=== PATIENT | male | born 1970 | race Caucasian/White ===

== ENCOUNTER 2019-07-13 17:21 | Inpatient (IN) | payer BC ==
[2019-07-13] MEDS ORDERED: ADENOSINE 3 MG/ML 2 ML VIAL IVP STA (17:38)
[2019-07-13] MEDS ORDERED: METOPROLOL TARTRATE 5 MG/5 ML VIAL IVP STA (17:41)
[2019-07-13] MEDS ORDERED: SODIUM CHLORIDE 0.9% 1,000 ML IV STA (17:41)
--- NOTE | 2019-07-13 17:43 | ED ---
Chest Pain HPI - General Chief Complaint: Chest Pain Stated Complaint: Chest pain Time Seen by Provider: 07/13/19 17:29 Source: patient, RN notes reviewed, old records reviewed Mode of arrival: ambulatory - History of Present Illness Initial Comments: This is a 49-year-old male presents today for shortness of breath patient drove himself to Hospital see chart at home was in the 200s. Patient states his heart feels acute tracing feels a headed and dizzy with chest pain currently. Patient admits to current chest pain but no significant shortness of breath increasing does not feel using a pass out. She admits to occasional drinking mild nausea no vomiting no travel show sick contacts no fevers MD Complaint: chest pain, other (Rapid heart rate) -: hour(s) Onset: during rest, awoke with symptoms Pain Location: left chest Pain Radiation: none Severity: moderate Severity scale (1-10): 7 Quality: tightness, heaviness Consistency: constant Improves With: nothing Worsens With: nothing Anginal Symptoms: nausea, dyspnea Other Symptoms: palpitations Treatments Prior to Arrival: none - Related Data Home Medications Medication Instructions Recorded Confirmed Labetalol [Trandate] 100 mg PO BID 02/02/15 07/13/19 Acetaminophen [Tylenol Extra 500 mg PO Q6H PRN 07/13/19 07/13/19 Strength] Atorvastatin [Lipitor] 40 mg PO HS 07/13/19 07/13/19 HYDROcodone/APAP 5-325MG [[place] 1 tab PO Q4HR PRN 07/13/19 07/13/19 5-325] Losartan Potassium 100 mg PO DAILY 07/13/19 07/13/19 Multivitamins, Thera [Multivitamin 1 tab PO DAILY 07/13/19 07/13/19 (formulary)] [place]-3 Acid Ethyl Esters [Lovaza] 2 gm PO BID 07/13/19 07/13/19 amLODIPine [Norvasc] 10 mg PO DAILY 07/13/19 07/13/19 Allergies Allergy/AdvReac Type Severity Reaction Status Date / Time No Known Allergies Allergy Verified 07/13/19 18:09 Review of Systems ROS Statement: Those systems with pertinent positive or pertinent negative responses have been documented in the HPI. ROS Other: All systems not noted in ROS Statement are negative. EKG Findings - EKG Comments: EKG Findings:: EKG shows SVT of 183, QRS 86, QTC 439. Repeat after adenosine. EKG shows sinus rhythm of 90, NM 160, QRS 96, QTC 423 Past Medical History Past Medical History: Hyperlipidemia, Hypertension History of Any Multi-Drug Resistant Organisms: None Reported Past Surgical History: Heart Catheterization Past Psychological History: Anxiety Smoking Status: Former smoker Past Alcohol Use History: Occasional Past Drug Use History: None Reported General Exam General appearance: alert, in no apparent distress, anxious, in distress, obese Head exam: Present: atraumatic, normocephalic, normal inspection Eye exam: Present: normal appearance, PERRL, EOMI. Absent: scleral icterus, conjunctival injection, periorbital swelling ENT exam: Present: normal exam, mucous membranes moist Neck exam: Present: normal inspection. Absent: tenderness, meningismus, lymphadenopathy Respiratory exam: Present: normal lung sounds bilaterally. Absent: respiratory distress, wheezes, rales, rhonchi, stridor Cardiovascular Exam: Present: normal rhythm, tachycardia, normal heart sounds. Absent: systolic murmur, diastolic murmur, rubs, gallop, clicks GI/Abdominal exam: Present: soft, normal bowel sounds. Absent: distended, tenderness, guarding, rebound, rigid Extremities exam: Present: normal inspection, full ROM, normal capillary refill. Absent: tenderness, pedal edema, joint swelling, calf tenderness Back exam: Present: normal inspection Neurological exam: Present: alert, oriented X3, CN II-XII intact Psychiatric exam: Present: normal affect, normal mood Skin exam: Present: warm, dry, intact, normal color. Absent: rash Course Vital Signs 07/13/19 07/13/19 07/13/19 17:23 17:42 18:07 Temperature 98.3 F Pulse Rate 180 H 89 82 Respiratory 20 18 18 Rate Blood Pressure 143/93 181/91 158/81 O2 Sat by Pulse 96 98 98 Oximetry 07/13/19 19:49 Temperature Pulse Rate 88 Respiratory 18 Rate Blood Pressure 160/84 O2 Sat by Pulse 98 Oximetry - Reevaluation(s) Reevaluation #1: 07/13/19 20:28 Medical records reviewed Reevaluation #2: 07/13/19 20:28 Agent given adenosine 12 mg after failure of vagal maneuvers. Patient did have conversion to normal sinus rhythm Chest Pain MDM - MDM 49 male who presented in SVT with chest pain today. SVT was converted with adenosine did feel regular movement maneuvers. Patient has normal heart rate currently still with chest pain and elevated troponin will admit for cardiology to evaluate Critical Care Time Critical Care Time: Yes Total Critical Care Time: 31 Disposition Clinical Impression: Atypical chest pain, Chest pain, SVT (supraventricular tachycardia), Elevated troponin Disposition: ADMITTED IP TO THIS HOSP Condition: Fair Is patient prescribed a controlled substance at d/c from ED?: No Referrals: Figueroa Briscoe MD [Primary Care Provider] - 1-2 days
[2019-07-13 18:09] LABS: Basophils % (A) 0 %; Eosinophils # (A) 0.1 k/uL (0-0.7); Eosinophils % (A) 1 %; HCT 48.9 % (39.0-53.0); HGB 16.6 gm/dL (13.0-17.5); Lymphocytes # (A) 1.5 k/uL (1.0-4.8); Lymphocytes % (A) 17 %; MCH 30.3 pg (25.0-35.0); MCHC 33.9 g/dL (31.0-37.0); MCV 89.4 fL (80.0-100.0); Mean Platelet Volume 7.8; Monocytes # (A) 0.5 k/uL (0-1.0); Monocytes % (A) 5 %; Neutrophils # (A) 6.8 k/uL (1.3-7.7); Neutrophils % (A) 75 %; Platelet Count 290 k/uL (150-450); RBC 5.46 m/uL (4.30-5.90); RDW 13.2 % (11.5-15.5)
--- NOTE | 2019-07-13 18:09 | XR ---
EXAMINATION TYPE: XR chest 2V DATE OF EXAM: 07/13/2019 COMPARISON: NONE HISTORY: Chest pain TECHNIQUE: 2 views FINDINGS: Heart and mediastinum are normal. Lungs are clear of infiltrate. There is no pleural effusi on. There are no hilar masses. Bony thorax is intact. IMPRESSION: No active cardiopulmonary disease. Normal heart.
[2019-07-13 18:13] LABS: ALT 65 U/L (4-49); AST 52 U/L (17-59); African American GFR (CKD) >90 (>60 ml/min/1.73 sqM); Albumin 4.8 g/dL (3.5-5.0); Alkaline Phosphatase 80 U/L (38-126); Anion Gap 11 mmol/L; Blood Urea Nitrogen 11 mg/dL (9-20); Calcium 9.8 mg/dL (8.4-10.2); Carbon Dioxide 22 mmol/L (22-30); Chloride 104 mmol/L (98-107); Creatine Kinase 606 U/L (55-170); Glucose 141 mg/dL (74-99); Magnesium 1.9 mg/dL (1.6-2.3); Non-African American GFR(CKD) >90 (>60 ml/min/1.73 sqM); Potassium 4.5 mmol/L (3.5-5.1); Sodium 137 mmol/L (137-145); Total Bilirubin 0.7 mg/dL (0.2-1.3); Total Protein 7.6 g/dL (6.3-8.2)
[2019-07-13 18:18] LABS: D-Dimer 0.51 mg/L FEU (<0.60); Partial Thromboplastin Time 23.8 sec (22.0-30.0)
[2019-07-13 18:31] LABS: Creatine Kinase MB 3.6 ng/mL (0.0-2.4)
[2019-07-13 18:57] LABS: Troponin I 0.049 ng/mL (0.000-0.034)
[2019-07-13] MEDS ORDERED: ASPIRIN 81 MG PO STA (20:26)
[2019-07-13] MEDS ORDERED: NITROGLYCERIN SL TABS 0.4 MG TAB SUBLINGUAL PRN (20:26)
[2019-07-13] MEDS ORDERED: LORazepam 2 MG/ML INJ IV PRN ×3 (20:36)
[2019-07-13] MEDS ORDERED: THIAMINE 100 MG/ML 2 ML VIAL IM STA (20:36)
[2019-07-13] MEDS: METOPROLOL TARTRATE 50 MG TAB PO SCH (22:58)
--- NOTE | 2019-07-14 00:26 | P.HPIM ---
History of Present Illness H&P Date: 07/13/19 The patient is a 49-year-old male with a PMH of hypertension and hyperlipidemia who presented to the ED with complaints of shortness of breath and chest discomfort. The patient reports that he was in his usual state of health until earlier today when he suddenly developed palpitations while at work. The palpitations were associated with mild chest discomfort (substernal, 3/10, non- radiating, pressure-like). He proceeded to go home and try to rest with no avail. The symptoms persisted, for which she then presented to the ED. Upon presentation to the emergency room, the patient was noted to have a pulse of 180, with EKG showing SVT at 183 bpm. The patient's BP was 143/93, temperature 98, and was saturating 96% on room air. The patient was given adenosine 12 mg IV push after which his SVT aborted. Further laboratory evaluation revealed a WBC count of 9.0, hemoglobin 16.6, CK 606, CK-MB 3.6, troponin 0.049, BNP 481, sodium 137, potassium 4.5, BUN 11, and a creatinine of 0.69. At time of the interview, the patient noted that his chest discomfort had resolved and he denied any additional complaints. He denied shortness of breath, nausea, vomiting, dizziness, palpitations, headaches, or abdominal pain. He is being admitted to the medicine service for further management of SVT. Review of Systems Pertinent positives and negatives as discussed in HPI, a complete review of systems was performed and all other systems are negative. Past Medical History Past Medical History: Hyperlipidemia, Hypertension History of Any Multi-Drug Resistant Organisms: None Reported Past Surgical History: Heart Catheterization Past Psychological History: Anxiety Smoking Status: Former smoker Past Alcohol Use History: Occasional Past Drug Use History: None Reported - Past Family History Father Family Medical History: Hypertension Medications and Allergies Home Medications Medication Instructions Recorded Confirmed Type Labetalol [Trandate] 100 mg PO BID 02/02/15 07/13/19 History Acetaminophen [Tylenol Extra 500 mg PO Q6H PRN 07/13/19 07/13/19 History Strength] Atorvastatin [Lipitor] 40 mg PO HS 07/13/19 07/13/19 History HYDROcodone/APAP 5-325MG [[place] 1 tab PO Q4HR PRN 07/13/19 07/13/19 History 5-325] Losartan Potassium 100 mg PO DAILY 07/13/19 07/13/19 History Multivitamins, Thera [Multivitamin 1 tab PO DAILY 07/13/19 07/13/19 History (formulary)] [place]-3 Acid Ethyl Esters [Lovaza] 2 gm PO BID 07/13/19 07/13/19 History amLODIPine [Norvasc] 10 mg PO DAILY 07/13/19 07/13/19 History Allergies Allergy/AdvReac Type Severity Reaction Status Date / Time No Known Allergies Allergy Verified 07/13/19 18:09 Physical Exam Vitals: Vital Signs Temp Pulse Resp BP Pulse Ox 07/13/19 23:14 97 F L 75 18 138/85 96 07/13/19 22:54 97 F L 75 18 138/85 96 07/13/19 19:49 88 18 160/84 98 07/13/19 18:07 82 18 158/81 98 07/13/19 17:42 89 18 181/91 98 07/13/19 17:23 98.3 F 180 H 20 143/93 96 Intake and Output 07/13/19 07/13/19 07/14/19 14:59 22:59 06:59 Other: Weight 120.202 kg General: non toxic, no distress, appears at stated age, morbidly obese Derm: no unusual rashes/lesions no unusual ecchymoses, warm, dry Head: atraumatic, normocephalic, symmetric Eyes: EOMI, no lid lag, anicteric sclera, pupils equal round reactive to light ENT: Nose and ears atraumatic, no thrush, no pharyngeal erythema Neck: No thyromegaly, no cervical lymphadenopathy, trachea midline, supple Mouth: no lip lesion, mucus membranes moist Cardiovascular: S1S2 reg, no murmur, positive posterior tibial pulse bilateral, no edema, capillary refill less than 2 seconds Lungs: CTA bilateral, no rhonchi, no rales , no accessory muscle use Abdominal: soft, nontender to palpation, no guarding, no appreciable organomegaly, normal bowel sounds Ext: no gross muscle atrophy, muscle strength 5 out of 5 in all 4 extremities grossly, no contractures, Neuro: CN II-XI grossly intact, light touch intact all 4 extremities, finger to nose within normal limits, Psych: Alert, oriented, appropriate affect Results CBC & Chem 7: 07/13/19 17:39 07/13/19 17:39 Labs: Abnormal Lab Results - Last 24 Hours (Table) 07/13/19 07/13/19 Range/Units 17:39 17:39 Glucose 141 H (74-99) mg/dL ALT 65 H (4-49) U/L Creatine Kinase 606 H (55-170) U/L CK-MB (CK-2) 3.6 H (0.0-2.4) ng/mL Troponin I 0.049 H* (0.000-0.034) ng/mL Assessment and Plan Plan: SVT, now aborted -Cardiology consulted -Start patient on Lopressor -Echocardiogram -Cardiac monitoring Chest discomfort with troponin elevation -Likely secondary to demand ischemia from SVT -Trend troponin -Cardiac monitoring Chronic conditions: Hypertension, hyperlipidemia - Continue with home meds DVT prophylaxis -Heparin subq The patient is admitted with an anticipated less than 2 midnight stay for evaluation of chest discomfort CODE STATUS: Full Code Discussed with: Patient Anticipated discharge date: 1-[address]: Home A total of 40 minutes was spent on the care of this complex patient more than 50% of the time was spent in counseling and care coordination.
[2019-07-14] MEDS ORDERED: HEPARIN SODIUM,PORCINE 5,000 UNIT/ML 1 ML VIAL IV PRN (01:12)
[2019-07-14] MEDS ORDERED: HEPARIN SODIUM,PORCINE 5,000 UNIT/ML 1 ML VIAL IV ONE (01:12)
[2019-07-14] MEDS ORDERED: HEPARIN SOD,PORK IN 0.45% NACL 25,000 UNIT in 0.45% NACL 1 250ML.BAG IV SCH (01:15)
[2019-07-14 06:19] LABS: Cholesterol 158 mg/dL (<200); HDL Cholesterol 52 mg/dL (40-60); LDL Cholesterol,Calculated 76 mg/dL (0-99); Triglycerides 151 mg/dL (<150)
[2019-07-14] MEDS ORDERED: THIAMINE 100 MG TAB PO SCH (07:30)
[2019-07-14] MEDS: METOPROLOL TARTRATE 50 MG TAB PO SCH (08:56)
--- NOTE | 2019-07-14 08:56 | P.CRDCN ---
History of Present Illness Consult date: 07/14/19 Requesting physician: Nicolás Martin Reason for Consult (text): SVT Chief complaint: Palpitations, dizziness History of present illness: This is a pleasant 49-year-old gentleman with history of hypertension, hyperlipidemia, obesity, sleep apnea for which he uses CPAP, EtOH use, patient s tates he drinks up to 14 alcoholic beverages on the weekends, nondiabetic, unsure of family history because he was adopted. Patient states he noticed his heart racing fast while he was at work, he states that he went home and continued to feel like it was going extremely fast. He did have some dizziness and some mild nausea and shortness of breath. Came to the emergency room for further evaluation and treatment. His EKG on presentation here showed a supraventricular tachycardia with a heart rate of 180, they attempted vagal maneuvers and subsequently gave the patient 12 mg of adenosine and the patient converted to normal sinus rhythm. He states that once he converted to normal rhythm his symptoms were completely resolved and he felt back to his normal self. Chest x-ray did not reveal any active cardiopulmonary disease. EKG from this morning shows a normal sinus rhythm with no acute changes. Blood pressure 142/70 with a heart rate in the 70s, 98% on room air. White blood cell count 9.0, hemoglobin 16, platelet count 290. D-dimer 0.5. Sodium 137, potassium 4.5, BUN 11, creatinine 0.6. Troponin 0.04, 0.26, 0.23. BNP 481. Past Medical History Past Medical History: Hyperlipidemia, Hypertension History of Any Multi-Drug Resistant Organisms: None Reported Past Surgical History: Heart Catheterization Past Psychological History: Anxiety Smoking Status: Former smoker Past Alcohol Use History: Occasional Past Drug Use History: None Reported - Past Family History Father Family Medical History: Hypertension Mother Family Medical History: Unable to Obtain Medications and Allergies Home Medications Medication Instructions Recorded Confirmed Type Labetalol [Trandate] 100 mg PO BID 02/02/15 07/13/19 History Acetaminophen [Tylenol Extra 500 mg PO Q6H PRN 07/13/19 07/13/19 History Strength] Atorvastatin [Lipitor] 40 mg PO HS 07/13/19 07/13/19 History HYDROcodone/APAP 5-325MG [[place] 1 tab PO Q4HR PRN 07/13/19 07/13/19 History 5-325] Losartan Potassium 100 mg PO DAILY 07/13/19 07/13/19 History Multivitamins, Thera [Multivitamin 1 tab PO DAILY 07/13/19 07/13/19 History (formulary)] [place]-3 Acid Ethyl Esters [Lovaza] 2 gm PO BID 07/13/19 07/13/19 History amLODIPine [Norvasc] 10 mg PO DAILY 07/13/19 07/13/19 History Allergies Allergy/AdvReac Type Severity Reaction Status Date / Time No Known Allergies Allergy Verified 07/13/19 18:09 Physical Exam Vitals: Vital Signs Temp Pulse Pulse Resp BP BP Pulse Ox 07/14/19 04:00 97.7 F 73 18 143/75 98 07/14/19 00:00 74 18 07/13/19 23:45 97.9 F 74 18 150/79 95 07/13/19 23:14 97 F L 75 18 138/85 96 07/13/19 22:54 97 F L 75 18 138/85 96 07/13/19 19:49 88 18 160/84 98 07/13/19 18:07 82 18 158/81 98 07/13/19 17:42 89 18 181/91 98 07/13/19 17:23 98.3 F 180 H 20 143/93 96 Intake and Output 07/13/19 07/14/19 07/14/19 22:59 06:59 14:59 Intake Total 71.09 69.257 Balance 71.09 69.257 Intake: Intake, IV Titration 71.09 69.257 Amount Heparin Sod,Pork in 0.45% 71.09 69.257 NaCl 25,000 unit In 0.45 % NaCl 1 250ml.bag @ 8.33 UNITS/KG/HR 10.013 mls/ hr IV .Q24H [facility] Rx#: [id number] Other: # Voids 0 Weight 120.202 kg 164.4 kg PHYSICAL EXAMINATION: GENERAL: 49-year-old gentleman in no acute distress at the time of my examination HEENT: Head is atraumatic, normocephalic. Pupils equal, round. Sclera anicteric. Conjunctiva are clear. Mucous membranes of the mouth are moist. Neck is supple. There is no elevated jugular venous pressure. No carotid bruit is heard. HEART EXAMINATION: Heart S1, S2 normal. No murmur or gallop heard. CHEST EXAMINATION: Lungs are clear to auscultation and precussion. No chest wall tenderness is noted on palpation or with deep breathing. ABDOMEN: Soft, obese, nontender. Bowel sounds are heard. No organomegaly noted. EXTREMITIES: 2+ peripheral pulses with trace evidence of peripheral edema and no calf tenderness noted. NEUROLOGIC patient is awake, alert and oriented 3 . Results 07/13/19 17:39 07/13/19 17:39 Cardiac Enzymes 07/13/19 07/13/19 07/13/19 Range/Units 17:39 17:39 23:26 AST 52 (17-59) U/L CK-MB (CK-2) 3.6 H (0.0-2.4) ng/mL Troponin I 0.049 H* 0.268 H* (0.000-0.034) ng/mL 07/14/19 Range/Units 05:52 AST (17-59) U/L CK-MB (CK-2) (0.0-2.4) ng/mL Troponin I 0.239 H* (0.000-0.034) ng/mL Coagulation 07/13/19 07/14/19 Range/Units 17:44 07:47 PT 10.0 (9.0-12.0) sec APTT 23.8 24.9 (22.0-30.0) sec Lipids 07/14/19 Range/Units 05:55 Triglycerides 151 H (<150) mg/dL Cholesterol 158 (<200) mg/dL HDL Cholesterol 52 (40-60) mg/dL CBC 07/13/19 Range/Units 17:39 WBC 9.0 (3.8-10.6) k/uL RBC 5.46 (4.30-5.90) m/uL Hgb 16.6 (13.0-17.5) gm/dL Hct 48.9 (39.0-53.0) % Plt Count 290 (150-450) k/uL Comprehensive Metabolic Panel 07/13/19 Range/Units 17:39 Sodium 137 (137-145) mmol/L Potassium 4.5 (3.5-5.1) mmol/L Chloride 104 (98-107) mmol/L Carbon Dioxide 22 (22-30) mmol/L BUN 11 (9-20) mg/dL Creatinine 0.69 (0.66-1.25) mg/dL Glucose 141 H (74-99) mg/dL Calcium 9.8 (8.4-10.2) mg/dL AST 52 (17-59) U/L ALT 65 H (4-49) U/L Alkaline Phosphatase 80 (38-126) U/L Total Protein 7.6 (6.3-8.2) g/dL Albumin 4.8 (3.5-5.0) g/dL Current Medications Generic Name Dose Route Start Last Admin Trade Name Freq PRN Reason Stop Dose Admin Aspirin 81 mg 07/14/19 09:00 Aspirin PO DAILY [facility] Atorvastatin Calcium 80 mg 07/14/19 09:00 Lipitor PO DAILY [facility] Heparin Sodium (Porcine) 0 unit 07/14/19 01:12 Heparin IV PER PROTOCOL PRN Low PTT Protocol Heparin Sodium/Sodium Chloride 250 mls @ 10.013 mls/hr 07/14/19 01:15 07/14/19 08:36 25,000 unit/ Sodium Chloride IV 11.33 units/kg/hr .Q24H [facility] 13.619 mls/hr Titration Protocol 8.33 UNITS/KG/HR Lorazepam 1 mg 07/13/19 20:36 Ativan IV Q2HR PRN CIWA 8 or 9 Lorazepam 1 mg 07/13/19 20:36 Ativan IV Q1HR PRN CIWA 10 to 15 Lorazepam 2 mg 07/13/19 20:36 Ativan IV 07/15/19 20:36 Q10M PRN CIWA 16 or higher Losartan Potassium 100 mg 07/14/19 09:00 Cozaar PO DAILY [facility] Metoprolol Tartrate 50 mg 07/13/19 21:00 07/13/19 22:58 Lopressor PO 50 mg BID [facility]GELICA Administration Multivitamins 1 each 07/14/19 09:00 07/14/19 08:50 Theragran PO Not Given DAILY [facility] Nitroglycerin 0.4 mg 07/13/19 20:26 Nitrostat SUBLINGUAL Q5M PRN Chest Pain Thiamine HCl 100 mg 07/14/19 07:30 07/14/19 08:50 Vitamin B-1 PO Not Given BID-W/MEALS ANGEILCA Intake and Output 07/13/19 07/14/19 07/14/19 22:59 06:59 14:59 Intake Total 71.09 69.257 Balance 71.09 69.257 Intake: Intake, IV Titration 71.09 69.257 Amount Heparin Sod,Pork in 0.45% 71.09 69.257 NaCl 25,000 unit In 0.45 % NaCl 1 250ml.bag @ 8.33 UNITS/KG/HR 10.013 mls/ hr IV .Q24H [facility] Rx#: [id number] Other: # Voids 0 Weight 120.202 kg 164.4 kg 07/13/19 17:39 07/13/19 17:39 EKG Interpretations (text) Initial EKG shows a supraventricular tachycardia with a heart rate of 188, subsequent EKG shows normal sinus rhythm with no acute changes. Assessment and Plan Plan: Assessment and plan #1 SVT, given 12 mg of adenosine, currently in normal sinus rhythm #2 hypertension #3 hyperlipidemia #4 morbid obesity #5 sleep apnea #6 excessive EtOH use on the weekends #7 abnormal trop sugg acute myocardial injury with no suggestion of ischemia Plan We will obtain an echocardiogram with Doppler study. Check patient's TSH level. Changed to metoprolol sesame 100 mg by mouth daily. He may be able to go home from our perspective later today, outpatient stress test. Appointment with Dr. VC Benedict in 3-4 weeks, we will also schedule the patient in 4 weeks or so with Dr. Deal for a possible ablation as an outpatient. DNP note has been reviewed, I agree with a documented findings and plan of care. Patient was seen and examined.
[2019-07-14] MEDS ORDERED: LOSARTAN 50 MG TAB PO SCH (09:00)
[2019-07-14] MEDS ORDERED: ASPIRIN 325 MG TAB PO SCH (09:00)
[2019-07-14] MEDS ORDERED: ASPIRIN 81 MG PO SCH (09:00)
[2019-07-14] MEDS ORDERED: ATORVASTATIN 80 MG TAB PO SCH (09:00)
[2019-07-14] MEDS ORDERED: MULTIVITAMINS, THERA 1 EACH TAB PO SCH (09:00)
--- NOTE | 2019-07-14 09:49 | ECHOF ---
Referral Reason:SVT MEASUREMENTS -------- HEIGHT: 182.9 cm WEIGHT: 127.0 kg BP: RVIDd: 3.4 cm (< 3.3) IVSd: 1.3 cm (0.6 - 1.1) LVIDd: 6.1 cm (3.9 - 5.3) LVPWd: 1.4 cm (0.6 - 1.1) IVSs: 1.6 cm LVIDs: 4.2 cm LVPWs: 1.5 cm LA Diam: 4.0 cm (2.7 - 3.8) MV EXCURSION: 18.655 mm (> 18.000) MV EF SLOPE: 131 mm/s (70 - 150) EPSS: 1.3 cm MV E Ray: 0.81 m/s MV DecT: 163 ms MV A Ray: 0.69 m/s MV E/A Ratio: 1.18 RAP: 5.00 mmHg RVSP: 5.68 mmHg FINDINGS -------- Sinus rhythm. Morbid Obesity This was a techncally difficult study with suboptimal views, , Lumason utilized for enhancement of images. The left ventricular size is normal. There is mild concentric left ventricular hypertrophy. Overa ll left ventricular systolic function is low-normal with, an EF between 50 - 55 %. The diastolic fi lling pattern is normal for the age of the patient 7.44. The right ventricle is normal in size. The left atrial size is normal. The right atrial size is normal. 5.0mg OF Lumason UTLIZED: 2 OR MORE WALL SEGMENTS NOT VISUALIZED. The aortic valve is trileaflet, and appears structurally normal. No aortic stenosis or regurgitation. Mild mitral annular calcification present. Mild mitral regurgitation is present. Mild tricuspid regurgitation present. Right ventricular systolic pressure is normal at < 35 mmHg. There is no evidence of pulmonary hypertension. The pulmonic valve was not well visualized. The aortic root size is normal. There is no pericardial effusion. CONCLUSIONS -------- 1. Sinus rhythm. 2. Morbid Obesity 3. This was a techncally difficult study with suboptimal views, , Lumason utilized for enhancement of images. 4. The left ventricular size is normal. 5. There is mild concentric left ventricular hypertrophy. 6. Overall left ventricular systolic function is low-normal with, an EF between 50 - 55 %. 7. The diastolic filling pattern is normal for the age of the patient 7.44 8. The right ventricle is normal in size. 9. The left atrial size is normal. 10. The right atrial size is normal. 11. 5.0mg OF Lumason UTLIZED: 2 OR MORE WALL SEGMENTS NOT VISUALIZED. 12. The aortic valve is trileaflet, and appears structurally normal. No aortic stenosis or regurgitat ion. 13. Mild mitral annular calcification present. 14. Mild mitral regurgitation is present. 15. Mild tricuspid regurgitation present. 16. Right ventricular systolic pressure is normal at < 35 mmHg. 17. There is no evidence of pulmonary hypertension. 18. The pulmonic valve was not well visualized. 19. The aortic root size is normal. 20. There is no pericardial effusion. [employer]IC: Kelly Iverson RDCS
--- NOTE | 2019-07-14 10:36 | P.DS ---
Providers Date of admission: 07/13/19 20:26 Expected date of discharge: 07/14/19 Attending physician: Nicolás Martin MD Consults: 07/13/19 20:26 Consult Physician Urgent Consulting Provider: Iker Croft Consult Reason/Comments: svt Do you want consulting provider notified?: Yes Primary care physician: Figueroa Briscoe MD Hospital Course: Discharge Diagnosis: SVT Elevated troponin due to demand ischemia, type II NC HTN HLD RUTH ANN with CPAP Morbid obesity with BMI 49.2 Episodic binge drinking Hospital Course: Patient is a 49-year-old female with a past medical history of hypertension, dyslipidemia, obstructive sleep apnea, and obesity who presented to the emergency department with complaints of palpitations, chest pain, and shortness of breath. In the ER he was found to have SVT. Vagal maneuvers were tried and failed and he received 12 of adenosine and converted to normal sinus rhythm. Initial troponin was mildly elevated and it did go up slightly but then remained stable. He was seen by cardiology. He underwent an echocardiogram which showed an ejection fraction of 50-55%. He was transitioned him from labetalol 100 twice daily to metoprolol succinate 100 mg daily. He was determined stable for discharge home. He'll follow-up with Dr. Benedict for outpatient stress test and Dr. Deal for possible EP study. Patient seen and examined at bedside. No chest pain, no shortness of breath, feeling back to normal. Vital signs reviewed and stable. General: non toxic, no distress, appears at stated age Derm: warm, dry Head: atraumatic, normocephalic, symmetric Eyes: EOMI, no lid lag, anicteric sclera Mouth: no lip lesion, mucus membranes moist Cardiovascular: S1S2 reg, no murmur, positive posterior tibial pulse bilateral, Lungs: decreased bs bilateral, no rhonchi, no rales , no accessory muscle use Abdominal: soft, nontender to palpation, no guarding, no appreciable orga nomegaly Ext: no gross muscle atrophy, trace edema, no contractures Psych: Alert, oriented, appropriate affect A total of 20 minutes of time were spent preparing this complex discharge summary . Patient Condition at Discharge: Stable Plan - Discharge Summary Discharge Rx Participant: Yes New Discharge Prescriptions: New Aspirin 81 mg PO DAILY chew Metoprolol Succinate (ER) [Toprol XL] 100 mg PO DAILY #30 tab.er.24h Continue Multivitamins, Thera [Multivitamin (formulary)] 1 tab PO DAILY Losartan Potassium 100 mg PO DAILY Babb-3 Acid Ethyl Esters [Lovaza] 2 gm PO BID Atorvastatin [Lipitor] 40 mg PO HS amLODIPine [Norvasc] 10 mg PO DAILY Acetaminophen [Tylenol Extra Strength] 500 mg PO Q6H PRN PRN Reason: Pain HYDROcodone/APAP 5-325MG [[place] 5-325] 1 tab PO Q4HR PRN PRN Reason: Pain Discontinued Labetalol [Trandate] 100 mg PO BID Discharge Medication List Acetaminophen [Tylenol Extra Strength] 500 mg PO Q6H PRN 07/13/19 [History] Atorvastatin [Lipitor] 40 mg PO HS 07/13/19 [History] HYDROcodone/APAP 5-325MG [[place] 5-325] 1 tab PO Q4HR PRN 07/13/19 [History] Losartan Potassium 100 mg PO DAILY 07/13/19 [History] Multivitamins, Thera [Multivitamin (formulary)] 1 tab PO DAILY 07/13/19 [History] Babb-3 Acid Ethyl Esters [Lovaza] 2 gm PO BID 07/13/19 [History] amLODIPine [Norvasc] 10 mg PO DAILY 07/13/19 [History] Aspirin 81 mg PO DAILY chew 07/14/19 [Rx] Metoprolol Succinate (ER) [Toprol XL] 100 mg PO DAILY #30 tab.er.24h 07/14/19 [Rx] Follow up Appointment(s)/Referral(s): Figueroa Briscoe MD [Primary Care Provider] - 1-2 days Samantha Benedict MD [STAFF PHYSICIAN] - 3 Weeks Eliceo Deal MD [STAFF PHYSICIAN] - 4 Weeks Activity/Diet/Wound Care/Special Instructions: Activity: as tolerated Diet: heart health Special Instructions: Return to emergency room with recurrent palpitations or chest pain Discharge Disposition: HOME SELF-CARE
[2019-07-14 10:53] VITALS: RESP 20
[2019-07-14 10:54] VITALS: BP 153/72; PULSE 70; TEMP 97.8
[2019-07-15] MEDS ORDERED: METOPROLOL SUCCINATE (ER) 100 MG TAB.ER.24H PO SCH (09:00)
== END 2019-07-14 11:37 | disposition home or self-care (01) | DRG 281 ==
LOC: EC 17:21 → 3SCARD 20:26
PROVIDERS: ADMIT Internal Medicine; ATTEND Internal Medicine
DX: I47.1 Supraventricular tachycardia (principal); I21.A1 Myocardial infarction type 2; Z68.42 Body mass index [BMI] 45.0-49.9, adult; E66.01 Morbid (severe) obesity due to excess calories; E78.5 Hyperlipidemia, unspecified; F41.9 Anxiety disorder, unspecified; G47.33 Obstructive sleep apnea (adult) (pediatric); Z99.89 Dependence on other enabling machines and devices; I10 Essential (primary) hypertension; Z79.899 Other long term (current) drug therapy; Z82.49 Family history of ischemic heart disease and other diseases of the circulatory system; Z87.891 Personal history of nicotine dependence; F50.81 Binge eating disorder
CPT/HCPCS: 36415; 71046; 80053; 80061; 82550; 82553; 83690; 83735; 83880; 84443; 84484; 85025; 85379; 85610; 85730; 93005; 93306; 96361; 96374; 96375; 99291